=== PATIENT | female | born 1960 | race Caucasian/White ===

== ENCOUNTER 2017-12-24 08:31 | Emergency (ER) | payer OTHER ==
[2017-12-24] MEDS ORDERED: Sodium Chloride 0.9% 10 ML Syringe FLUSH PRN (08:45)
[2017-12-24] MEDS ORDERED: Aspirin 81 MG Tab.Chew PO ONE (08:45)
--- NOTE | 2017-12-24 09:54 | CR ---
Chest: Two views of the chest were obtained. Comparison: No prior chest x-ray. Heart size and mediastinum are normal. Lungs are clear. Bony structures appear within normal limits for the patient's age. Impression: 1. Nothing acute is seen on two-view chest x-ray. Diagnostic code #1
--- NOTE | 2017-12-24 10:03 | EDM.PDOC ---
ED HPI GENERAL MEDICAL PROBLEM - General Chief Complaint: Chest Pain Stated Complaint: CHEST PAIN Time Seen by Provider: 12/24/17 08:39 Source of Information: Reports: Patient History Limitations: Reports: No Limitations - History of Present Illness INITIAL COMMENTS - FREE TEXT/NARRATIVE: The patient presents with chest pain. This started yesterday. She has been dealing with allergies. She saw an expert in [place] and they are trying to find out the cause. She has been having runny nose, sneezing, cough and shortness of breath. She had an episode yesterday and after that she developed chest tightness. It is constant. She has some shortness of breath with it. She has never had an IN before. She has no history of heart disease, hypertension or diabetes. She does have a history of hypercholesterolemia. She was taken off of her meds because of myalgias. They will recheck her labs later. She has some tightness now. She has no fever, chills, cough, abdominal pain, nausea or vomiting. She does not smoke. Onset: Gradual Duration: Day(s): (2) Location: Reports: Chest Quality: Reports: Other (Tightness) Severity: Mild Improves with: Reports: None Worsens with: Reports: None Associated Symptoms: Reports: Chest Pain, Cough, Shortness of Breath. Denies: Fever/Chills, Headaches, Nausea/Vomiting Chest Pain Score (Numeric/FACES): 4 - Related Data Allergies Allergy/AdvReac Type Severity Reaction Status Date / Time animal dander Allergy Swollen Verified 12/24/17 09:11 Eyes Sulfa (Sulfonamide Allergy Hives Verified 12/24/17 09:07 Antibiotics) perservatives Allergy Sneezing Uncoded 12/24/17 09:11 Home Meds: Home Meds . [No Known Home Meds] 12/24/17 [History] Past Medical History HEENT History: Reports: Other (See Below) Other HEENT History: allergies Cardiovascular History: Reports: High Cholesterol Genitourinary History: Reports: UTI, Recurrent Other Genitourinary History: bladder and kidney/renal cancer. 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 L) adrenal gland removed to due non-cancerous tumor. Dermatologic History: Reports: Other (See Below) Other Dermatologic History: basal cell carcinoma. - Infectious Disease History Infectious Disease History: Reports: Chicken Pox, Shingles - Past Surgical History HEENT Surgical History: Reports: Tonsillectomy, Other (See Below) Other HEENT Surgeries/Procedures: wisdom teeth removal. Female Surgical History: Reports: Hysterectomy Endocrine Surgical History: Reports: Adrenal Gland Other Endocrine Surgeries/Procedures: L) removed due to non-cancerous tumor. Musculoskeletal Surgical History: Reports: Arthroscopic Knee Other Musculoskeletal Surgeries/Procedures:: R) knee. Social & Family History - Tobacco Use Smoking Status *Q: Never Smoker Second Hand Smoke Exposure: No - Caffeine Use Caffeine Use: Reports: Coffee, Soda - Recreational Drug Use Recreational Drug Use: No ED ROS GENERAL - Review of Systems Review Of Systems: See Below Constitutional: Reports: No Symptoms HEENT: Reports: Other (Congestion and runny nose) Respiratory: Reports: Shortness of Breath, Cough Cardiovascular: Reports: Chest Pain Endocrine: Reports: No Symptoms GI/Abdominal: Reports: No Symptoms : Reports: No Symptoms Musculoskeletal: Reports: No Symptoms ED EXAM, GENERAL - Physical Exam Exam: See Below Exam Limited By: No Limitations General Appearance: Alert, No Apparent Distress Ears: Normal External Exam Nose: Normal Inspection Head: Atraumatic, Normocephalic Neck: Normal Inspection Respiratory/Chest: No Respiratory Distress, Lungs Clear, Normal Breath Sounds Cardiovascular: Regular Rate, Rhythm, No Edema, No Murmur GI/Abdominal: Soft, Non-Tender, No Organomegaly, No Mass Back Exam: Normal Inspection Extremities: Normal Inspection Neurological: Alert, Oriented, No Motor/Sensory Deficits EKG INTERPRETATION EKG Date: 12/24/17 Time: 08:37 Rhythm: NSR Rate (Beats/Min): 73 [place]: Normal P-Wave: Present QRS: Normal ST-T: Normal QT: Normal Course - Vital Signs Last Recorded V/S: Last Vital Signs Temp 97.5 F 12/24/17 08:35 Pulse 71 12/24/17 08:35 Resp 16 12/24/17 08:35 BP 144/82 H 12/24/17 08:35 Pulse Ox 96 12/24/17 08:35 - Orders/Labs/Meds Orders: Active Orders 24 hr Category Date Time Status Cardiac Monitoring [RC] . DIRECTED Care 12/24/17 08:45 Active EKG Documentation Completion [RC] STAT Care 12/24/17 08:45 Active Peripheral IV Care [RC] . DIRECTED Care 12/24/17 08:45 Active Sodium Chloride 0.9% [Saline Flush] Med 12/24/17 08:45 Active 10 ml FLUSH ASDIRECTED PRN Peripheral IV Insertion Adult [OM.PC] Stat Oth 12/24/17 08:45 Ordered Medication Orders Sodium Chloride (Saline Flush) 10 ml FLUSH ASDIRECTED PRN PRN Reason: Keep Vein Open Last Admin: 12/24/17 08:55 Dose: 10 ml Labs: Laboratory Tests 12/24/17 12/24/17 12/24/17 Range/Units 08:55 08:55 08:55 WBC 7.64 (3.98-10.04) K/mm3 RBC 5.05 (3.98-5.22) M/mm3 Hgb 14.2 (11.2-15.7) gm/L Hct 43.1 (34.1-44.9) % MCV 85.3 (79.4-94.8) fl MCH 28.1 (25.6-32.2) pg MCHC 32.9 (32.2-35.5) g/dl RDW Std Deviation 40.4 (36.4-46.3) fL Plt Count 318 (182-369) K/mm3 MPV 10.1 (9.4-12.3) fl Neut % (Auto) 52.9 (34.0-71.1) % Lymph % (Auto) 35.5 (19.3-51.7) % [place] % (Auto) 9.4 (4.7-12.5) % Eos % (Auto) 1.2 (0.7-5.8) Baso % (Auto) 0.7 (0.1-1.2) % Neut # (Auto) 4.05 (1.56-6.13) K/mm3 Lymph # (Auto) 2.71 (1.18-3.74) K/mm3 [place] # (Auto) 0.72 H (0.24-0.36) K/mm3 Eos # (Auto) 0.09 (0.04-0.36) K/mm3 Baso # (Auto) 0.05 (0.01-0.08) K/mm3 D-Dimer, Quantitative 0.20 (0.19-0.50) mg/L Sodium 140 (136-145) mEq/L Potassium 4.2 (3.5-5.1) mEq/L Chloride 105 (98-107) mEq/L Carbon Dioxide 27 (21-32) mEq/L Anion Gap 12.2 (5-15) BUN 15 (7-18) mg/dL Creatinine 1.0 (0.55-1.02) mg/dL Est Cr Clr Drug Dosing 71.05 mL/min Estimated GFR (MDRD) 58 (>60) mL/min BUN/Creatinine Ratio 15.0 (14-18) Glucose 95 (74-106) mg/dL Calcium 9.5 (8.5-10.1) mg/dL Total Bilirubin 0.4 (0.2-1.0) mg/dL AST 42 H (15-37) U/L ALT 105 H (14-59) U/L Alkaline Phosphatase 101 (46-116) U/L Troponin I < 0.017 (0.00-0.056) ng/mL Total Protein 7.7 (6.4-8.2) g/dl Albumin 4.1 (3.4-5.0) g/dl Globulin 3.6 gm/dL Albumin/Globulin Ratio 1.1 (1-2) Meds: Medications Generic Name Dose Route Start Last Admin Trade Name Freq PRN Reason Stop Dose Admin Sodium Chloride 10 ml 12/24/17 08:45 12/24/17 08:55 Saline Flush FLUSH 10 ml ASDIRECTED PRN Administration Keep Vein Open Discontinued Medications Generic Name Dose Route Start Last Admin Trade Name Freq PRN Reason Stop Dose Admin Aspirin 324 mg 12/24/17 08:45 12/24/17 09:01 Aspirin PO 12/24/17 08:46 324 mg ONETIME ONE Administration - Re-Assessments/Exams Free Text/Narrative Re-Assessment/Exam: 12/24/17 10:06 I ordered an IV saline lock, EKG, CXR, labs and aspirin. Her EKG shows a NSR with no acute changes. Her CXR looks good 12/24/17 10:16 Her CBC and CMP look good. Her troponin and D-dimer were negative. I feel this is not cardiac and may be related to her allergies. Departure - Departure Time of Disposition: 10:25 Disposition: Home, Self-Care 01 Condition: Good Clinical Impression: Atypical chest pain Referrals: Serafin Uribe MD [Primary Care Provider] - Forms: ED Department Discharge Additional Instructions: Take motrin or tylenol for pain. Follow up with your doctor in 1 week please return if you are worse. - My Orders Last 24 Hours: My Active Orders 12/24/17 08:45 Cardiac Monitoring [RC] . DIRECTED EKG Documentation Completion [RC] STAT Peripheral IV Care [RC] . DIRECTED Sodium Chloride 0.9% [Saline Flush] 10 ml FLUSH ASDIRECTED PRN Peripheral IV Insertion Adult [OM.PC] Stat - Assessment/Plan Last 24 Hours: My Active Orders 12/24/17 08:45 Cardiac Monitoring [RC] . DIRECTED EKG Documentation Completion [RC] STAT Peripheral IV Care [RC] . DIRECTED Sodium Chloride 0.9% [Saline Flush] 10 ml FLUSH ASDIRECTED PRN Peripheral IV Insertion Adult [OM.PC] Stat
== END 2017-12-24 10:48 | disposition home or self-care (01) ==
LOC: JD.ED 08:31
DX: R07.89 Other chest pain (principal)
CPT/HCPCS: 36415; 71046; 80053; 84484; 85025; 85379; 93005; 99285; A9270; J7050; 93010; 99284-25

== ENCOUNTER 2020-11-05 13:01 | Emergency (ER) | payer BC, OTHER ==
[2020-11-05] MEDS ORDERED: methylPREDNISolone Sodium Succinate 125 MG/2 ML SDV IVPUSH PRN (13:46)
[2020-11-05] MEDS ORDERED: Famotidine 20 MG/2 ML SDV IVPUSH PRN (13:46)
[2020-11-05] MEDS ORDERED: diphenhydrAMINE 50 MG/ML SDV IVPUSH PRN (13:46)
[2020-11-05] MEDS ORDERED: EPINEPHrine 1 MG/ML SDV IM PRN (13:46)
--- NOTE | 2020-11-05 13:56 | EDM.PDOC ---
ED HPI GENERAL MEDICAL PROBLEM - General Chief Complaint: Respiratory Problem Stated Complaint: COVID +/COUGH AND HEADACHE Time Seen by Provider: 11/05/20 13:12 Source of Information: Reports: Patient, RN Notes Reviewed History Limitations: Reports: No Limitations - History of Present Illness INITIAL COMMENTS - FREE TEXT/NARRATIVE: Patient is a 60-year-old female presenting to the emergency department for evaluation with regards to positive COVID-19 test. She reports that on Wednesday of last week she began to feel mildly achy with a little bit of a headache. She did get her second Covid vaccine on . Over the weekend, symptoms have been progressively worsening. She complains of headache, body aches, nausea, cough, fatigue, and chills. Denies any significant shortness of breath. She had known exposure to an individual who tested positive for Covid today. She was then tested by the Department of Health today and found to be positive. She presents to the ER with request of receiving monoclonal antibodies. She does have a history significant for hyperlipidemia as well as her BMI is greater than 35. Vital signs on triage were found to be normal. Temperature 99.1 temporal, pulse 72, blood pressure 136/69, respiratory rate 20, oxygen 96% on room air. Treatments PHYSICIAN/OPHTHALMOLOGIST: Reports: Other (see below) Other Treatments PHYSICIAN/OPHTHALMOLOGIST: none Headache Pain Score (Numeric/FACES): 3 Generalized Pain Score (Numeric/FACES): 4 - Related Data Allergies Allergy/AdvReac Type Severity Reaction Status Date / Time animal dander Allergy Swollen Verified 12/24/17 09:11 Eyes Sulfa (Sulfonamide Allergy Hives Verified 12/24/17 09:07 Antibiotics) perservatives Allergy Sneezing Uncoded 12/24/17 09:11 Home Meds: Home Meds Simvastatin 20 mg PO DAILY 11/05/20 [History] Past Medical History HEENT History: Reports: Other (See Below) Other HEENT History: allergies Cardiovascular History: Reports: High Cholesterol Genitourinary History: Reports: UTI, Recurrent Other Genitourinary History: bladder and kidney/renal cancer. 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 L) adrenal gland removed to due non-cancerous tumor. Dermatologic History: Reports: Other (See Below) Other Dermatologic History: basal cell carcinoma. - Infectious Disease History Infectious Disease History: Reports: Chicken Pox, Shingles - Past Surgical History HEENT Surgical History: Reports: Tonsillectomy, Other (See Below) Other HEENT Surgeries/Procedures: wisdom teeth removal. Female Surgical History: Reports: Hysterectomy Endocrine Surgical History: Reports: Adrenal Gland Other Endocrine Surgeries/Procedures: L) removed due to non-cancerous tumor. Musculoskeletal Surgical History: Reports: Arthroscopic Knee Other Musculoskeletal Surgeries/Procedures:: R) knee. Social & Family History - Tobacco Use Tobacco Use Status *Q: Never Tobacco User - Caffeine Use Caffeine Use: Reports: Coffee, Soda, Tea - Recreational Drug Use Recreational Drug Use: No ED ROS GENERAL - Review of Systems Review Of Systems: See Below Constitutional: Reports: Fever, Chills, Fatigue, Decreased Appetite HEENT: Reports: No Symptoms Respiratory: Reports: Cough. Denies: Shortness of Breath, Pleuritic Chest Pain Cardiovascular: Reports: No Symptoms Endocrine: Reports: No Symptoms GI/Abdominal: Reports: Nausea. Denies: Abdominal Pain, Diarrhea, Vomiting : Reports: No Symptoms Musculoskeletal: Reports: Other (Generalized body aches) Skin: Reports: No Symptoms Neurological: Reports: Headache Psychiatric: Reports: No Symptoms Hematologic/Lymphatic: Reports: No Symptoms Immunologic: Reports: No Symptoms ED EXAM, GENERAL - Physical Exam Exam: See Below Exam Limited By: No Limitations General Appearance: Alert, WD/WN, No Apparent Distress Respiratory/Chest: No Respiratory Distress, Lungs Clear, Normal Breath Sounds, No Accessory Muscle Use, Chest Non-Tender Cardiovascular: Normal Peripheral Pulses, Regular Rate, Rhythm, No Edema, No Gallop, No JVD, No Murmur, No Rub GI/Abdominal: Normal Bowel Sounds, Soft, Non-Tender, No Organomegaly, No Distention, No Abnormal Bruit, No Mass Neurological: Alert, Oriented, CN II-XII Intact, Normal Cognition, Normal Gait, Normal Reflexes, No Motor/Sensory Deficits Psychiatric: Normal Affect, Normal Mood Skin Exam: Warm, Dry, Intact, Normal Color, No Rash Course - Vital Signs Last Recorded V/S: Last Vital Signs Temp 98.9 F 11/05/20 16:45 Pulse 71 11/05/20 16:45 Resp 20 11/05/20 16:45 BP 112/85 11/05/20 16:45 Pulse Ox 96 11/05/20 16:45 - Orders/Labs/Meds Labs: Laboratory Tests 11/05/20 11/05/20 Range/Units 14:19 14:19 WBC 5.25 (3.98-10.04) K/mm3 RBC 5.14 (3.98-5.22) M/mm3 Hgb 14.3 (11.2-15.7) gm/dl Hct 44.2 (34.1-44.9) % MCV 86.0 (79.4-94.8) fl MCH 27.8 (25.6-32.2) pg MCHC 32.4 (32.2-35.5) g/dl RDW Std Deviation 44.0 (36.4-46.3) fL Plt Count 317 (182-369) K/mm3 MPV 10.7 (9.4-12.3) fl Neut % (Auto) 36.5 (34.0-71.1) % Lymph % (Auto) 50.7 (19.3-51.7) % [place] % (Auto) 10.1 (4.7-12.5) % Eos % (Auto) 1.7 (0.7-5.8) Baso % (Auto) 0.6 (0.1-1.2) % Neut # (Auto) 1.92 (1.56-6.13) K/mm3 Lymph # (Auto) 2.66 (1.18-3.74) K/mm3 [place] # (Auto) 0.53 H (0.24-0.36) K/mm3 Eos # (Auto) 0.09 (0.04-0.36) K/mm3 Baso # (Auto) 0.03 (0.01-0.08) K/mm3 Sodium 144 (136-145) mEq/L Potassium 4.3 (3.5-5.1) mEq/L Chloride 105 (98-107) mEq/L Carbon Dioxide 26 (21-32) mEq/L Anion Gap 17.3 H (5-15) BUN 17 (7-18) mg/dL Creatinine 1.0 (0.55-1.02) mg/dL Est Cr Clr Drug Dosing 66.31 mL/min Estimated GFR (MDRD) 57 (>60) mL/min BUN/Creatinine Ratio 17.0 (14-18) Glucose 92 (70-99) mg/dL Calcium 9.0 (8.5-10.1) mg/dL Total Bilirubin 0.3 (0.2-1.0) mg/dL AST 30 (15-37) U/L ALT 60 H (14-59) U/L Alkaline Phosphatase 85 (46-116) U/L Total Protein 8.0 (6.4-8.2) g/dl Albumin 4.2 (3.4-5.0) g/dl Globulin 3.8 gm/dL Albumin/Globulin Ratio 1.1 (1-2) Meds: Medications Discontinued Medications Generic Name Dose Route Start Last Admin Trade Name Freq PRN Reason Stop Dose Admin Acetaminophen 650 mg 11/05/20 14:33 11/05/20 14:44 Acetaminophen 325 Mg Tab PO 11/05/20 14:34 650 mg NOW ONE Administration Diphenhydramine HCl 50 mg 11/05/20 13:46 Diphenhydramine 50 Mg/Ml Sdv IVPUSH ONETIME PRN hypersensitivity reaction Epinephrine HCl 0.3 mg 11/05/20 13:46 Epinephrine 1 Mg/Ml Sdv IM ONETIME PRN hypersensitivity reaction Famotidine 20 mg 11/05/20 13:46 Famotidine 20 Mg/2 Ml Sdv IVPUSH ONETIME PRN hypersensitivity reaction Bamlanivimab 700 mg/ 310 mls @ 310 mls/hr 11/05/20 14:45 11/05/20 15:00 Etesevimab 1,400 mg/ Sodium IV 11/05/20 15:44 310 mls/hr Chloride ONETIME ONE Administration Methylprednisolone Sodium Succinate 125 mg 11/05/20 13:46 Methylprednisolone Sodium Succinate 125 Mg/2 Ml Sdv IVPUSH ONETIME PRN hypersensitivity reaction Sodium Chloride 30 ml 11/05/20 14:00 Sodium Chloride 0.9% 10 Ml Syringe FLUSH ASDIRECTED FAITH - Re-Assessments/Exams Free Text/Narrative Re-Assessment/Exam: Patient is a 60-year-old female diagnosed Covid positive today presenting to the emergency department with request to receive monoclonal antibodies. She did receive her second Covid vaccine on of last week. Symptoms began mildly the day before she received her second Covid vaccine. I did speak with [facility] and pharmacy who stated that the patient can still receive monoclonal antibodies after receiving Covid vaccine. Patient's exam is grossly unremarkable. Lung sounds are clear. Patient was educated with regards to monoclonal antibody treatment and she would like to proceed with this. I have ordered basic blood work, chest x-ray, and Bamlanivimab with Etesevimab infusion. 11/05/20 15:34 Hematology is grossly unremarkable. Nothing acute was seen on the chest xray. Monoclonal antibodies are infusing and pt is tolerating well thus far. 11/05/20 17:05 Patient has completed her monoclonal antibody infusion as well as the 1 hour waiting period after the infusion. She tolerated it well. She had no adverse reactions. We will discharge her home. Discharge instructions as documented. Departure - Departure Time of Disposition: 17:05 Disposition: Home, Self-Care 01 Condition: Good Clinical Impression: COVID-19 - Discharge Information *PRESCRIPTION DRUG MONITORING PROGRAM REVIEWED*: No *COPY OF PRESCRIPTION DRUG MONITORING REPORT IN PATIENT ROBERT: No Instructions: COVID-19 Frequently Asked Questions, COVID-19 Vaccine Information Referrals: PCP,None [Primary Care Provider] - Forms: ED Department Discharge Additional Instructions: You were seen in the emergency department today for evaluation with regards to symptoms related to COVID-19. Work-up included blood work and a chest x-ray. Results of your work-up were found to be normal. There is no evidence of Covid pneumonia. While in the ER, you received an infusion of monoclonal antibodies. Recommend that you go home and rest. You may use Tylenol and ibuprofen as needed for discomfort. Follow the directions of the Department of Health with regards to quarantine. If you should experience any new or worsening symptoms, please not hesitate to return to the emergency department for reevaluation. Sepsis Event Note (ED) - Evaluation Sepsis Screening Result: No Definite Risk - Focused Exam Vital Signs: Vital Signs Temp Pulse Resp BP Pulse Ox 11/05/20 16:45 98.9 F 71 20 112/85 96 11/05/20 16:30 98.0 F 70 20 128/70 95 11/05/20 16:15 70 18 108/95 H 95 11/05/20 16:00 74 20 126/71 97 11/05/20 15:45 72 18 125/85 94 L 11/05/20 15:30 69 20 127/97 H 96 11/05/20 15:15 69 20 125/70 95 11/05/20 14:16 98.4 F 77 20 127/70 96 11/05/20 13:26 99.1 F 72 20 136/69 96
[2020-11-05] MEDS ORDERED: Sodium Chloride 0.9% 10 ML Syringe FLUSH SCH (14:00)
[2020-11-05] MEDS ORDERED: Acetaminophen 325 MG Tab PO ONE (14:33)
--- NOTE | 2020-11-05 14:34 | CR ---
Chest: Portable view of the chest was obtained. Comparison: Prior chest x-ray of 12/24/17. Heart size and mediastinum are normal. Lungs are clear with no acute parenchymal change. No acute osseous abnormality is appreciated. Impression: 1. Nothing acute is seen on portable chest x-ray. Diagnostic code #1
== END 2020-11-05 17:30 | disposition home or self-care (01) ==
LOC: JD.ED 13:01
DX: U07.1 COVID-19 (principal); E78.00 Pure hypercholesterolemia, unspecified; Z79.899 Other long term (current) drug therapy; Z91.048 Other nonmedicinal substance allergy status; Z88.2 Allergy status to sulfonamides
CPT/HCPCS: 36415; 71045; 80053; 85025; 99284; A9270; J7050; M0245; Q0245